=== PATIENT | male | born 1970 | race American Indian/Alaskan Native ===

== ENCOUNTER 2016-10-27 12:32 | Inpatient (IN) | payer SELFPAY ==
--- NOTE | 2016-10-27 13:06 | Emergency Department Report ---
Chief Complaint: Dyspnea/Respdistress Stated Complaint: ALVIN/SWELLING Time Seen by Provider: 10/27/16 13:02 - HPI History of Present Illness: Patient is a 46 y/o malw who presents due to SOB and orthopnea x 1 year. Patient states that he came to the ER because of the he noticed swellin in his feet and lower legs x 2 weeks. Patient denies any chest pain. Patient states that had has h/o HTN but has not taking any medications or seen a doctor. - ROS Review of Systems: positive orthopnea, SOB, and pedal edema - Exam Vital Signs: Vital Signs 10/27/16 12:43 Temperature 98.6 F Pulse Rate 108 H Respiratory 20 Rate Blood Pressure 187/131 O2 Sat by Pulse 94 Oximetry Physical Exam: 2 + pedal edema from feet to bilateral lower leg. MSE screening note: Focused history and physical exam performed. Due to findings the following was ordered: ED Disposition for MSE Condition: Stable
[2016-10-27 13:49] LABS: Basophils % (Auto) 2.4 % (0.0-1.8); Hematocrit 48.8 % (35.5-45.6); Hemoglobin 15.9 gm/dl (11.8-15.2); Mean Corpuscular HGB Conc 33 % (32-34); Mean Corpuscular Hemoglobin 30 pg (28-32); Mean Corpuscular Volume 92 fl (84-94); Platelet Count 215 K/mm3 (140-440); Red Blood Count 5.33 M/mm3 (3.65-5.03); Red Cell Distribution Width 12.9 % (13.2-15.2)
[2016-10-27 13:57] LABS: INR 1.06 (0.87-1.13)
[2016-10-27 13:58] LABS: Partial Thromboplastin Time 33.2 Sec. (24.2-36.6)
[2016-10-27 14:05] LABS: Albumin 3.1 g/dL (3.9-5); Albumin/Globulin Ratio 0.9 %; Bilirubin,Total 0.6 mg/dL (0.1-1.2); Calcium 8.5 mg/dL (8.4-10.2); Chloride 97.4 mmol/L (98-107); Potassium 3.8 mmol/L (3.6-5.0); Total Protein 6.6 g/dL (6.3-8.2)
[2016-10-27 14:19] LABS: Creatine Kinase 236 units/L (55-170); Creatine Kinase MB 5.4 ng/mL (0.0-4.0)
--- NOTE | 2016-10-27 14:34 | XRay Report ---
CHEST X-RAY, 2 VIEWS History: Dyspnea Findings: There is borderline heart size and mild pulmonary venous congestion. Trace right pleural effusion could be present. No consolidation or pneumothorax. The bony thorax is intact. Impression: Mild congestive changes.
[2016-10-27] MEDS ORDERED: LASIX IV ONE (17:34)
--- NOTE | 2016-10-27 17:42 | Emergency Department Report ---
HPI - General Chief Complaint: Dyspnea/Respdistress Time Seen by Provider: 10/27/16 17:26 - HPI HPI: Room 18 The patient is a 46-year-old male presenting with chief complaint of bilateral lower extremity edema. The patient states for the past 1.5 weeks he has noticed swelling of bilateral lower extremities. The patient states for 1.5 years is exhibiting orthopnea and occasionally chest tightness when lying supine. The patient admits to dyspnea on exertion for approximately one year. The patient states he has not sought medical attention for the above complaints until today. The patient currently denies chest pain Location: [see above] Duration: 1.5 years Quality: Pressure Severity: Moderate Modifying factors: [see above] Context: [see above] Mode of transportation: Unknown ED Past Medical Hx - Past Medical History Previous Medical History?: No Hx Hypertension: Yes (not on medication) Additional medical history: tracheotomy,jaw wired - Surgical History Past Surgical History?: No Additional Surgical History: trach,jaw wired,hernia - Family History Family history: no significant - Social History Smoking Status: Former Smoker (none 1 month) Substance Use Type: None (denies illicit drug use), Alcohol (occasional) ED Review of Systems ROS: Stated complaint: ALVIN/SWELLING Other details as noted in HPI Comment: All other systems reviewed and negative Constitutional: denies: chills, fever Eyes: denies: eye pain, eye discharge, vision change ENT: denies: ear pain, throat pain Respiratory: cough, orthopnea, shortness of breath Cardiovascular: chest pain, dyspnea on exertion, orthopnea. denies: palpitations Endocrine: no symptoms reported Gastrointestinal: denies: abdominal pain, nausea, diarrhea Genitourinary: denies: urgency, dysuria Musculoskeletal: denies: back pain, joint swelling, arthralgia Skin: denies: rash, lesions Neurological: denies: headache, weakness, paresthesias Psychiatric: denies: anxiety, depression Hematological/Lymphatic: other (bilateral lower extremity edema) Physical Exam - Physical Exam Vital Signs: Vital Signs 10/27/16 12:43 Temperature 98.6 F Pulse Rate 108 H Respiratory 20 Rate Blood Pressure 187/131 O2 Sat by Pulse 94 Oximetry Physical Exam: GENERAL: The patient is well-developed well-nourished male sitting on stretcher not appearing to be in acute distress. [] HEENT: Normocephalic. Atraumatic. Extraocular motions are intact. Patient has moist mucous membranes. NECK: Supple. Trachea midline CHEST/LUNGS: Occasional faint crackle at left base. There is no respiratory distress noted. HEART/CARDIOVASCULAR: Regular. There is no tachycardia. There is no gallop rub or murmur. ABDOMEN: Abdomen is soft, nontender. Patient has normal bowel sounds. There is no abdominal distention. SKIN: There is no rash. There is 2+ bilateral lower extremity pitting edema. There is no diaphoresis. NEURO: The patient is awake, alert, and oriented. The patient is cooperative. The patient has normal speech MUSCULOSKELETAL: There is no evidence of acute injury. ED Course Vital Signs 10/27/16 12:43 Temperature 98.6 F Pulse Rate 108 H Respiratory 20 Rate Blood Pressure 187/131 O2 Sat by Pulse 94 Oximetry ED Medical Decision Making - Lab Data Result diagrams: 10/27/16 13:29 10/27/16 13:29 Laboratory Tests 10/27/16 10/27/16 10/27/16 13:29 13:29 13:29 WBC 7.0 RBC 5.33 H Hgb 15.9 H Hct 48.8 H MCV 92 MCH 30 MCHC 33 RDW 12.9 L Plt Count 215 Lymph % (Auto) 15.6 Pike % (Auto) 6.7 Eos % (Auto) 3.0 Baso % (Auto) 2.4 H Lymph # 1.1 L Pike # 0.5 Eos # 0.2 Baso # 0.2 H Seg Neutrophils % 72.3 H Seg Neutrophils # 5.1 PT 13.7 INR 1.06 APTT 33.2 Sodium 137 Potassium 3.8 Chloride 97.4 L Carbon Dioxide 29 Anion Gap 14 BUN 14 Creatinine 1.4 Estimated GFR 54 BUN/Creatinine Ratio 10.00 Glucose 318 H Calcium 8.5 Total Bilirubin 0.6 AST 38 ALT 56 Alkaline Phosphatase 115 Total Creatine Kinase CK-MB (CK-2) CK-MB (CK-2) Rel Index Troponin T NT-Pro-B Natriuret Pep Total Protein 6.6 Albumin 3.1 L Albumin/Globulin Ratio 0.9 Lipase 25 10/27/16 10/27/16 13:29 13:29 WBC RBC Hgb Hct MCV MCH MCHC RDW Plt Count Lymph % (Auto) Pike % (Auto) Eos % (Auto) Baso % (Auto) Lymph # Pike # Eos # Baso # Seg Neutrophils % Seg Neutrophils # PT INR APTT Sodium Potassium Chloride Carbon Dioxide Anion Gap BUN Creatinine Estimated GFR BUN/Creatinine Ratio Glucose Calcium Total Bilirubin AST ALT Alkaline Phosphatase Total Creatine Kinase 236 H CK-MB (CK-2) 5.4 H CK-MB (CK-2) Rel Index 2.2 Troponin T < 0.010 NT-Pro-B Natriuret Pep 2668 H Total Protein Albumin Albumin/Globulin Ratio Lipase - EKG Data -: EKG Interpreted by Me EKG shows normal: sinus rhythm Rate: tachycardia (103 bpm) - EKG Data When compared to previous EKG there are: previous EKG unavailable Interpretation: nonspecific ST-T wave wilber (T-wave inversion in leads 1, aVL) - Radiology Data Radiology results: image reviewed (chest x-ray) interpreted by me: Chest x-ray-mild CHF changes - Differential Diagnosis CHF, ACS, acute renal failure Critical care attestation.: If time is entered above; I have spent that time in minutes in the direct care of this critically ill patient, excluding procedure time. ED Disposition Clinical Impression: Congestive heart failure, Orthopnea, Dyspnea on exertion, T wave inversion in EKG Disposition: OP ADMITTED IP TO THIS HOSP Is pt being admited?: Yes Does the pt Need Aspirin: Yes Condition: Fair Referrals: PRIMARY CARE, [Primary Care Provider] - 3-5 Days Time of Disposition: 17:54 (hospitalist notified)
[2016-10-27] MEDS ORDERED: ASPIRIN PO ONE (17:47)
--- NOTE | 2016-10-27 18:00 | Admit Criteria Form ---
Admission Criteria Documentation: HEART FAILURE: COMMON COMPLICATIONS Clinical Indications for Inpatient Care (Place 'X' for any and all applicable criteria): Ongoing inpatient care may be indicated for heart failure with ANY ONE of the following (1)(2)(3)(4)(5): [ ]I. Ongoing need for care for primary condition requiring frequent therapy adjustments because of changes in cardiac function (eg, drug dosage changes for drugs that are renally metabolized) [ ]II. New-onset heart failure [ ]III. Heart failure with decreased urine output not responsive to attempts to optimize volume status [ ]IV. Acute cardiac ischemia causing or associated with failure [X ]V. Complications of heart failure, including ANY ONE of the following: [ ]a) Pericardial effusion [ ]b) Symptomatic pleural effusion [ ]c) O2 saturation <90% or PO2 < 60 mm Hg (8.0 kPa) on room air or require baseline supplemental O2 [ ]d) Tachypnea [ X]e) Dyspnea [ ]f) Syncope [ ]g) Change in mental status [ ]h) Acute renal insufficiency that is severe (reduction of more than 50% in estimated glomerular filtration rate from baseline) or progressive reduction of more than 25% in estimated glomerular filtration rate from baseline, with creatinine continuing to rise) [ ]i) Hemodynamic instability [ ]j) Anasarca [ ]k) Clinically significant metabolic abnormalities due to heart failure (eg, new-onset metabolic acidosis) Extended stay beyond goal length of stay for primary condition may be needed until ALL of the following are present(1)(3): [ ]a) Stable and effective diuretic regimen established (or patient on stable dialysis regimen if in chronic renal failure) [ ]b) Breathing comfortably at rest [ ]c) Saturation of arterial oxygen greater than 90% or at acceptable baseline [ ]d) Pulmonary edema absent or improved [ ]e) Hemodynamic stability [ ]f) Volume status acceptable on oral medication [ ]g) Peripheral or sacral edema absent or improved [ ]h) Renal function stable and manageable at a lower level of care [ ]i) Complications (eg, pleural effusion) resolved or manageable at a lower level of care [ ]j) Patient or caregiver has received written discharge instructions or educational material addressing activity level, diet, discharge medications, follow-up appointment, weight monitoring, and what to do if symptoms worsen The original [facility] content created by [employer] has been revised. The portions of the content which have been revised are identified through the use of italic text or in bold, and [facility] has neither reviewed nor approved the modified material.All other unmodified content is copyright [facility]. Please see references footnoted in the original [facility] edition 2016 Admission Criteria Met: Yes
--- NOTE | 2016-10-27 18:30 | History and Physical Report ---
History of Present Illness Date of examination: 10/27/16 Date of admission: 10/27/16 Chief complaint: Shortness of breath and leg edema for 2 weeks History of present illness: Patient is a 46-year-old with no known past medical history. He does not have a primary care physician and has not seen a doctor in many many years. He presents with 2 week history of leg edema and shortness of breath. Shortness of breath is worse on exertion and on lying down flat. He denies any chest pain. Leg edema has been getting worse over the past 2 weeks. No nausea no vomiting no headache. In emergency department, he is found to have hypertensive urgency and congestive heart failure and will therefore be admitted. Past History Past Medical History: No medical history Past Surgical History: Other (tracheostomy, mandibular fracture status post wiring) Social history: (has 4 children), smoking (quit smoking one month ago), alcohol abuse (alcohol occasionally), full code Family history: diabetes (mother has diabetes) Medications and Allergies Allergies Allergy/AdvReac Type Severity Reaction Status Date / Time No Known Allergies Allergy Unverified 10/27/16 12:50 Home Medications Medication Instructions Recorded Confirmed Last Taken Type No Known Home Medications [No 10/27/16 10/27/16 Unknown History Reported Home Medications] Review of Systems All systems: negative (no headache, no fever, no abdominal pain, no vomiting, no dysuria, no leg weakness. All other systems reviewed and are negative) Exam - Physical Exam Narrative exam: Gen appearance: not in acute distress, obese HEENT: Normocephalic, atraumatic Neck : supple, no JVD Lungs: Patient has crackles bibasilar, no wheezing . Heart : S1 and S2 regular, no murmurs rubs or gallop, Abdomen: soft nontender, nondistended, normal bowel sounds Extremities: Bilateral lower extremity edema, no clubbing or cyanosis, Neuro :awake alert oriented 3, no focal signs Psych :appropriate mood - Constitutional Vitals: Temp Pulse Resp BP Pulse Ox 98.6 F 102 H 22 186/130 91 10/27/16 12:43 10/27/16 18:16 10/27/16 18:16 10/27/16 18:16 10/27/16 18:16 Results - Labs CBC & Chem 7: 10/27/16 13:29 10/27/16 13:29 Labs: Abnormal lab results 10/27/16 10/27/16 10/27/16 Range/Units 13:29 13:29 13:29 RBC 5.33 H (3.65-5.03) M/mm3 Hgb 15.9 H (11.8-15.2) gm/dl Hct 48.8 H (35.5-45.6) % RDW 12.9 L (13.2-15.2) % Baso % (Auto) 2.4 H (0.0-1.8) % Lymph # 1.1 L (1.2-5.4) K/mm3 Baso # 0.2 H (0.0-0.1) K/mm3 Seg Neutrophils % 72.3 H (40.0-70.0) % Chloride 97.4 L (98-107) mmol/L Glucose 318 H (75-100) mg/dL Total Creatine Kinase 236 H (55-170) units/L CK-MB (CK-2) 5.4 H (0.0-4.0) ng/mL NT-Pro-B Natriuret Pep (0-450) pg/mL Albumin 3.1 L (3.9-5) g/dL 10/27/16 Range/Units 13:29 RBC (3.65-5.03) M/mm3 Hgb (11.8-15.2) gm/dl Hct (35.5-45.6) % RDW (13.2-15.2) % Baso % (Auto) (0.0-1.8) % Lymph # (1.2-5.4) K/mm3 Baso # (0.0-0.1) K/mm3 Seg Neutrophils % (40.0-70.0) % Chloride (98-107) mmol/L Glucose (75-100) mg/dL Total Creatine Kinase (55-170) units/L CK-MB (CK-2) (0.0-4.0) ng/mL NT-Pro-B Natriuret Pep 2668 H (0-450) pg/mL Albumin (3.9-5) g/dL Assessment and Plan Acute congestive heart failure . Admit to telemetry. Use heart failure protocol. Give Lasix IV 40 mg twice a day, Coreg twice daily and Nitropaste. Obtain echocardiogram to check EF. Hypertensive urgency. Initial blood pressure 187/131. Give hydralazine IV when necessary. Start Coreg and Nitropaste. Diabetes mellitus type II. This is a new diagnosis. His glucose is elevated at 318 so he probably has diabetes. Check fingerstick glucose before every meal and at bedtime. Will check hemoglobin A1c. Patient will need diabetic teaching and antidiabetics on discharge Obesity. I counseled him on losing weight. DVT prophylaxis with heparin subcut. Full CODE STATUS
[2016-10-27 18:52] LABS: Bilirubin,Urine NEG (Negative); Blood,Urine SM (Negative); Ketones,Urine NEG (Negative); Leukocyte Esterase,Urine NEG (Negative); Mucus,Urine FEW /HPF; Nitrite,Urine NEG (Negative); Urobilinogen,Urine < 2.0 mg/dL (<2.0); WBC,Urine < 1.0 /HPF (0.0-6.0)
[2016-10-27] MEDS ORDERED: MILK OF MAGNESIA PO PRN (19:15)
[2016-10-27] MEDS ORDERED: TYLENOL PO PRN (19:15)
[2016-10-27] MEDS ORDERED: APRESOLINE IV STA (19:15)
[2016-10-27] MEDS ORDERED: NORCO 5/325 PO PRN (19:15)
[2016-10-27] MEDS ORDERED: ZOFRAN IV PRN (19:15)
[2016-10-27] MEDS ORDERED: DULCOLAX PR PRN (19:15)
[2016-10-27] MEDS ORDERED: NITROSTAT SL PRN (19:23)
[2016-10-27] MEDS ORDERED: APRESOLINE ONE (20:07)
[2016-10-27] MEDS ORDERED: NITRO-BID 2% TP SCH (21:00)
[2016-10-27] MEDS: NORVASC PO SCH (22:54)
[2016-10-27] MEDS: COREG PO SCH (22:55)
[2016-10-27] MEDS: HEPARIN SUB-Q SCH (22:59)
[2016-10-28] MEDS: APRESOLINE IV PRN ×2 (00:16→21:51)
[2016-10-28] MEDS: NITRO-BID 2% TP SCH ×4 (05:49→17:18)
[2016-10-28] MEDS: LASIX IV SCH ×2 (05:49→17:18)
[2016-10-28] MEDS: HEPARIN SUB-Q SCH ×3 (05:52→21:52)
[2016-10-28 07:23] LABS: Anion Gap 16 mmol/L; Blood Urea Nitrogen 12 mg/dL (9-20); Calcium 8.5 mg/dL (8.4-10.2); Carbon Dioxide 27 mmol/L (22-30); Chloride 100.5 mmol/L (98-107); Glucose 247 mg/dL (75-100); Potassium 3.4 mmol/L (3.6-5.0); Sodium 140 mmol/L (137-145)
[2016-10-28 07:27] LABS: Basophils % (Auto) 0.8 % (0.0-1.8); Eosinophils % (Auto) 2.1 % (0.0-4.3); Hematocrit 48.5 % (35.5-45.6); Hemoglobin 15.7 gm/dl (11.8-15.2); Mean Corpuscular HGB Conc 32 % (32-34); Mean Corpuscular Hemoglobin 29 pg (28-32); Mean Corpuscular Volume 91 fl (84-94); Platelet Count 240 K/mm3 (140-440); Red Blood Count 5.33 M/mm3 (3.65-5.03); Red Cell Distribution Width 12.9 % (13.2-15.2); White Blood Count 7.1 K/mm3 (4.5-11.0)
[2016-10-28] MEDS: K-DUR PO SCH ×2 (09:43→15:43)
[2016-10-28] MEDS: NORVASC PO SCH (09:43)
[2016-10-28] MEDS: COREG PO SCH ×2 (09:43→21:48)
[2016-10-28] MEDS ORDERED: NORVASC PO STA (11:25)
--- NOTE | 2016-10-28 11:29 | Progress Note ---
Assessment and Plan Assessment and plan: Acute congestive heart failure . Continue Lasix IV 40 mg twice a day, Coreg twice daily and Nitropaste. Obtain echocardiogram to check EF. Hypertensive urgency. The pressure still uncontrolled. continue Coreg and Nitropaste. Will increase Norvasc to 10 mg by mouth daily. May add Hydralazine later today if blood pressure still uncontrolled. Diabetes mellitus type II. This is a new diagnosis. His glucose on admission was elevated at 318 , A1C 9.5. Check fingerstick glucose before every meal and at bedtime. started on Insulin. Obesity. I counseled him on losing weight. DVT prophylaxis with heparin subcut. Full CODE STATUS History Interval history: patient is 46-year-old admitted with acute CHF, Less shortness of breath, less leg edema Hospitalist Physical - Physical exam Narrative exam: Gen appearance: not in acute distress, obese HEENT: Normocephalic, atraumatic Neck : supple, no JVD Lungs: Patient has crackles bibasilar, no wheezing . Heart : S1 and S2 regular, no murmurs rubs or gallop, Abdomen: soft nontender, nondistended, normal bowel sounds Extremities: Bilateral lower extremity edema, no clubbing or cyanosis, Neuro :awake alert oriented 3, no focal signs Psych :appropriate mood - Constitutional Vitals: Temp Pulse Resp BP Pulse Ox 98.2 F 108 H 20 171/104 97 10/28/16 07:54 10/28/16 07:54 10/28/16 07:54 10/28/16 09:49 10/28/16 01:50 Results - Labs CBC & Chem 7: 10/28/16 06:11 10/28/16 06:11 Labs: Laboratory Last Values WBC 7.1 K/mm3 (4.5-11.0) 10/28/16 06:11 RBC 5.33 M/mm3 (3.65-5.03) H 10/28/16 06:11 Hgb 15.7 gm/dl (11.8-15.2) H 10/28/16 06:11 Hct 48.5 % (35.5-45.6) H 10/28/16 06:11 MCV 91 fl (84-94) 10/28/16 06:11 MCH 29 pg (28-32) 10/28/16 06:11 MCHC 32 % (32-34) 10/28/16 06:11 RDW 12.9 % (13.2-15.2) L 10/28/16 06:11 Plt Count 240 K/mm3 (140-440) 10/28/16 06:11 Lymph % (Auto) 17.8 % (13.4-35.0) 10/28/16 06:11 [place] % (Auto) 8.1 % (0.0-7.3) H 10/28/16 06:11 Eos % (Auto) 2.1 % (0.0-4.3) 10/28/16 06:11 Baso % (Auto) 0.8 % (0.0-1.8) 10/28/16 06:11 Lymph # 1.3 K/mm3 (1.2-5.4) 10/28/16 06:11 [place] # 0.6 K/mm3 (0.0-0.8) 10/28/16 06:11 Eos # 0.1 K/mm3 (0.0-0.4) 10/28/16 06:11 Baso # 0.1 K/mm3 (0.0-0.1) 10/28/16 06:11 Seg Neutrophils % 71.2 % (40.0-70.0) H 10/28/16 06:11 Seg Neutrophils # 5.1 K/mm3 (1.8-7.7) 10/28/16 06:11 PT 13.7 Sec. (12.2-14.9) 10/27/16 13:29 INR 1.06 (0.87-1.13) 10/27/16 13:29 APTT 33.2 Sec. (24.2-36.6) 10/27/16 13:29 Sodium 140 mmol/L (137-145) 10/28/16 06:11 Potassium 3.4 mmol/L (3.6-5.0) L 10/28/16 06:11 Chloride 100.5 mmol/L (98-107) 10/28/16 06:11 Carbon Dioxide 27 mmol/L (22-30) 10/28/16 06:11 Anion Gap 16 mmol/L 10/28/16 06:11 BUN 12 mg/dL (9-20) 10/28/16 06:11 Creatinine 1.1 mg/dL (0.8-1.5) 10/28/16 06:11 Estimated GFR > 60 ml/min 10/28/16 06:11 BUN/Creatinine Ratio 10.90 % 10/28/16 06:11 Glucose 247 mg/dL (75-100) H 10/28/16 06:11 POC Glucose 231 (70-105) H 10/28/16 07:52 Hemoglobin A1c 9.5 % (4-6) H 10/27/16 13:29 Calcium 8.5 mg/dL (8.4-10.2) 10/28/16 06:11 Total Bilirubin 0.6 mg/dL (0.1-1.2) 10/27/16 13:29 AST 38 units/L (5-40) 10/27/16 13:29 ALT 56 units/L (7-56) 10/27/16 13:29 Alkaline Phosphatase 115 units/L (35-129) 10/27/16 13:29 Total Creatine Kinase 236 units/L (55-170) H 10/27/16 13:29 CK-MB (CK-2) 5.4 ng/mL (0.0-4.0) H 10/27/16 13:29 CK-MB (CK-2) Rel Index 2.2 (0-4) 10/27/16 13:29 Troponin T < 0.010 ng/mL (0.00-0.029) 10/27/16 19:13 NT-Pro-B Natriuret Pep 2668 pg/mL (0-450) H 10/27/16 13:29 Total Protein 6.6 g/dL (6.3-8.2) 10/27/16 13:29 Albumin 3.1 g/dL (3.9-5) L 10/27/16 13:29 Albumin/Globulin Ratio 0.9 % 10/27/16 13:29 Triglycerides 116 mg/dL (2-149) 10/27/16 13:29 Cholesterol 158 mg/dL (50-199) 10/27/16 13:29 LDL Cholesterol Direct 94 mg/dL (50-130) 10/27/16 13:29 HDL Cholesterol 41 mg/dL (40-59) 10/27/16 13:29 Cholesterol/HDL Ratio 3.85 % 10/27/16 13:29 Lipase 25 units/L (13-60) 10/27/16 13:29 Urine Color Straw (Yellow) 10/27/16 18:22 Urine Turbidity Clear (Clear) 10/27/16 18:22 Urine pH 7.0 (5.0-7.0) 10/27/16 18:22 Ur Specific [place] 1.005 (1.003-1.030) 10/27/16 18:22 Urine Protein 100 mg/dl mg/dL (Negative) 10/27/16 18:22 Urine Glucose (UA) >=500 mg/dL (Negative) 10/27/16 18:22 Urine Ketones Neg mg/dL (Negative) 10/27/16 18:22 Urine Blood Sm (Negative) 10/27/16 18:22 Urine Nitrite Neg (Negative) 10/27/16 18:22 Urine Bilirubin Neg (Negative) 10/27/16 18:22 Urine Urobilinogen < 2.0 mg/dL (<2.0) 10/27/16 18:22 Ur Leukocyte Esterase Neg (Negative) 10/27/16 18:22 Urine WBC (Auto) < 1.0 /HPF (0.0-6.0) 10/27/16 18:22 Urine RBC (Auto) 1.0 /HPF (0.0-6.0) 10/27/16 18:22 Urine Mucus Few /HPF 10/27/16 18:22
--- NOTE | 2016-10-28 16:06 | Echocardiography Report ---
Transthoracic Echocardiogram BP: 174/96 HR: 73 Conclusions *there is moderate concentric lv thickening *The estimated ejection fraction is 35-40% *there is grade l lv diastolic dysfunction *The left atrium is normal *The right atrium is normal *The right ventricular cavity size is normal. *The right ventricular global systolic function is mildly reduced. *There is no evidence of aortic regurgitation. *There is no evidence of aortic stenosis. *There is trace of mitral regurgitation. *There is no evidence of mitral stenosis. *There is trace tricuspid regurgitation. *There is no pericardial effusion. *the aortic root appears normal *the ivc appears dialted but is phasic with respiration. mean ra pressure is estimated to be 8 mm hg. Findings Procedure Info: The study quality is fair. Right Ventricle: The right ventricular cavity size is normal. The right ventricular global systolic function is mildly reduced. Aortic Valve: The aortic valve is trileaflet. There is no evidence of aortic regurgitation. There is no evidence of aortic stenosis. Mitral Valve: The mitral valve leaflets appear normal. There is trace of mitral regurgitation. There is no evidence of mitral stenosis. Tricuspid Valve: The tricuspid valve leaflets are normal. There is trace tricuspid regurgitation. There is no tricuspid stenosis. Pulmonic Valve: The pulmonic valve is not well visualized. There is no evidence of pulmonic regurgitation. There is no pulmonic stenosis. Pericardium: There is no pericardial effusion. Measurements Chambers MM Name Value Normal Range IVSd (MM) 1.45 cm (0.6 - 1.1) LVPWd (MM) 1.49 cm (0.6 - 1.1) IVS:LVPW ratio 0.97 ratio - LVIDd (MM) 5.16 cm (3.7 - 5.6) LVIDs (MM) 3.99 cm (2 - 2.8) LV FS (Teichholz) (MM) 22.7 % - LV FS (cube) (MM) 22.7 % - EF Teichholz (MM) 45.2 % - Chambers 2D Name Value Normal Range IVSd (2D) 1.6 cm (0.6 - 1.1) LVPWd 1.3 cm - LVPWd (2D) 1.33 cm (0.6 - 1.1) IVS:LVPW ratio (2D) 1.2 ratio - LVIDd 4.4 cm - LVIDs 3.6 cm - LVIDd (2D) 4.38 cm (3.7 - 5.6) LVIDs (2D) 3.59 cm (2 - 3.8) LV FS (Teichholz) (2D) 18 % - LV FS (cube) (2D) 18 % - LV EF (2D) 38 % - EF Teichholz (2D) 37.7 % - LA dimension 4.3 cm - Ao root diameter (2D) 3.1 cm (2 - 3.7) LA dimension (AP) 2D 4.3 cm (1.9 - 4) LA:Ao ratio (2D) 1.39 ratio - Volumes/Mass Name Value Normal Range LA ESV SP 4CH (MOD) 43 ml - LV EDV SP 4CH (MOD) 81 ml - LV ESV SP 4CH (MOD) 49 ml - EF SP 4CH (MOD) 40 % - Diastolic/Systolic Function Name Value Normal Range MV E-wave Vmax 0.87 m/sec - MV deceleration time 180 msec - LV septal e' Vmax 0.07 m/sec - LV lateral e' Vmax 0.04 m/sec - LV E:e' septal ratio 12.4 ratio - LV E:e' lateral ratio 19.4 ratio - Aortic Valve Name Value Normal Range AV Vmax 1.38 m/sec - AV peak gradient 8 mmHg - LVOT diameter 2 cm - LVOT Vmax 0.85 m/sec - LVOT peak gradient 3 mmHg - GODWIN (continuity Vmax) 1.93 cm2 - Tricuspid Valve Name Value Normal Range TR Vmax 2.48 m/sec - TR peak gradient 25 mmHg - Pulmonic Valve/Qp:Qs Name Value Normal Range PV Vmax 0.72 m/sec - PV peak gradient 2 mmHg - PV acceleration time 69 msec -
[2016-10-28] MEDS: NOVOLOG SUB-Q SCH (22:37)
[2016-10-29] MEDS: NOVOLOG SUB-Q SCH ×4 (13:54→21:47)
[2016-10-29] MEDS: NITRO-BID 2% TP SCH ×4 (13:55→21:15)
[2016-10-29] MEDS: HEPARIN SUB-Q SCH ×3 (14:00→21:47)
--- NOTE | 2016-10-29 14:37 | Progress Note ---
Assessment and Plan Assessment and plan: Acute congestive heart failure . Continue Lasix IV 40 mg twice a day, Coreg twice daily and Nitropaste. Shows EF 35-40%. Consult Cardiology. For stress test in the morning. Hypertensive urgency. The pressure still uncontrolled. increase Coreg to 12.5 mg po bid. Will increase Norvasc to 10 mg by mouth daily. May add Hydralazine later today if blood pressure still uncontrolled. Diabetes mellitus type II. This is a new diagnosis. His glucose on admission was elevated at 318 , A1C 9.5. Check fingerstick glucose before every meal and at bedtime. started on Insulin. he states he does not want to go home on Insulin. Will send home on oral anti-diabetic. Obesity. I counseled him on losing weight. DVT prophylaxis with heparin subcut. Full CODE STATUS History Interval history: patient is 46-year-old admitted with acute CHF, Less shortness of breath, less leg edema Hospitalist Physical - Physical exam Narrative exam: Gen appearance: not in acute distress, obese HEENT: Normocephalic, atraumatic Neck : supple, no JVD Lungs: Patient has crackles bibasilar, no wheezing . Heart : S1 and S2 regular, no murmurs rubs or gallop, Abdomen: soft nontender, nondistended, normal bowel sounds Extremities: Bilateral lower extremity edema, no clubbing or cyanosis, Neuro :awake alert oriented 3, no focal signs Psych :appropriate mood - Constitutional Vitals: Temp Pulse Resp BP Pulse Ox 98.2 F 96 H 20 168/94 93 10/28/16 23:57 10/28/16 23:57 10/28/16 23:57 10/28/16 23:57 10/29/16 11:43 Results - Labs CBC & Chem 7: 10/28/16 06:11 10/29/16 06:00 Labs: Laboratory Last Values WBC 7.1 K/mm3 (4.5-11.0) 10/28/16 06:11 RBC 5.33 M/mm3 (3.65-5.03) H 10/28/16 06:11 Hgb 15.7 gm/dl (11.8-15.2) H 10/28/16 06:11 Hct 48.5 % (35.5-45.6) H 10/28/16 06:11 MCV 91 fl (84-94) 10/28/16 06:11 MCH 29 pg (28-32) 10/28/16 06:11 MCHC 32 % (32-34) 10/28/16 06:11 RDW 12.9 % (13.2-15.2) L 10/28/16 06:11 Plt Count 240 K/mm3 (140-440) 10/28/16 06:11 Lymph % (Auto) 17.8 % (13.4-35.0) 10/28/16 06:11 [place] % (Auto) 8.1 % (0.0-7.3) H 10/28/16 06:11 Eos % (Auto) 2.1 % (0.0-4.3) 10/28/16 06:11 Baso % (Auto) 0.8 % (0.0-1.8) 10/28/16 06:11 Lymph # 1.3 K/mm3 (1.2-5.4) 10/28/16 06:11 [place] # 0.6 K/mm3 (0.0-0.8) 10/28/16 06:11 Eos # 0.1 K/mm3 (0.0-0.4) 10/28/16 06:11 Baso # 0.1 K/mm3 (0.0-0.1) 10/28/16 06:11 Seg Neutrophils % 71.2 % (40.0-70.0) H 10/28/16 06:11 Seg Neutrophils # 5.1 K/mm3 (1.8-7.7) 10/28/16 06:11 PT 13.7 Sec. (12.2-14.9) 10/27/16 13:29 INR 1.06 (0.87-1.13) 10/27/16 13:29 APTT 33.2 Sec. (24.2-36.6) 10/27/16 13:29 Sodium 140 mmol/L (137-145) 10/28/16 06:11 Potassium 3.4 mmol/L (3.6-5.0) L 10/28/16 06:11 Chloride 100.5 mmol/L (98-107) 10/28/16 06:11 Carbon Dioxide 27 mmol/L (22-30) 10/28/16 06:11 Anion Gap 16 mmol/L 10/28/16 06:11 BUN 12 mg/dL (9-20) 10/28/16 06:11 Creatinine 1.1 mg/dL (0.8-1.5) 10/28/16 06:11 Estimated GFR > 60 ml/min 10/28/16 06:11 BUN/Creatinine Ratio 10.90 % 10/28/16 06:11 Glucose 247 mg/dL (75-100) H 10/28/16 06:11 POC Glucose 137 (70-105) H 10/29/16 12:52 Hemoglobin A1c 9.5 % (4-6) H 10/27/16 13:29 Calcium 8.5 mg/dL (8.4-10.2) 10/28/16 06:11 Total Bilirubin 0.6 mg/dL (0.1-1.2) 10/27/16 13:29 AST 38 units/L (5-40) 10/27/16 13:29 ALT 56 units/L (7-56) 10/27/16 13:29 Alkaline Phosphatase 115 units/L (35-129) 10/27/16 13:29 Total Creatine Kinase 236 units/L (55-170) H 10/27/16 13:29 CK-MB (CK-2) 5.4 ng/mL (0.0-4.0) H 10/27/16 13:29 CK-MB (CK-2) Rel Index 2.2 (0-4) 10/27/16 13:29 Troponin T < 0.010 ng/mL (0.00-0.029) 10/27/16 19:13 NT-Pro-B Natriuret Pep 2668 pg/mL (0-450) H 10/27/16 13:29 Total Protein 6.6 g/dL (6.3-8.2) 10/27/16 13:29 Albumin 3.1 g/dL (3.9-5) L 10/27/16 13:29 Albumin/Globulin Ratio 0.9 % 10/27/16 13:29 Triglycerides 116 mg/dL (2-149) 10/27/16 13:29 Cholesterol 158 mg/dL (50-199) 10/27/16 13:29 LDL Cholesterol Direct 94 mg/dL (50-130) 10/27/16 13:29 HDL Cholesterol 41 mg/dL (40-59) 10/27/16 13:29 Cholesterol/HDL Ratio 3.85 % 10/27/16 13:29 Lipase 25 units/L (13-60) 10/27/16 13:29 Urine Color Straw (Yellow) 10/27/16 18:22 Urine Turbidity Clear (Clear) 10/27/16 18:22 Urine pH 7.0 (5.0-7.0) 10/27/16 18:22 Ur Specific [place] 1.005 (1.003-1.030) 10/27/16 18:22 Urine Protein 100 mg/dl mg/dL (Negative) 10/27/16 18:22 Urine Glucose (UA) >=500 mg/dL (Negative) 10/27/16 18:22 Urine Ketones Neg mg/dL (Negative) 10/27/16 18:22 Urine Blood Sm (Negative) 10/27/16 18:22 Urine Nitrite Neg (Negative) 10/27/16 18:22 Urine Bilirubin Neg (Negative) 10/27/16 18:22 Urine Urobilinogen < 2.0 mg/dL (<2.0) 10/27/16 18:22 Ur Leukocyte Esterase Neg (Negative) 10/27/16 18:22 Urine WBC (Auto) < 1.0 /HPF (0.0-6.0) 10/27/16 18:22 Urine RBC (Auto) 1.0 /HPF (0.0-6.0) 10/27/16 18:22 Urine Mucus Few /HPF 10/27/16 18:22
[2016-10-29 14:51] LABS: Blood Urea Nitrogen 12 mg/dL (9-20); Calcium 8.7 mg/dL (8.4-10.2); Carbon Dioxide 29 mmol/L (22-30); Glucose 203 mg/dL (75-100); Potassium 3.6 mmol/L (3.6-5.0); Sodium 141 mmol/L (137-145)
[2016-10-29 15:31] LABS: Anion Gap 15 mmol/L
--- NOTE | 2016-10-29 15:52 | Consultation ---
History of Present Illness Consult date: 10/29/16 Requesting physician: YFN COLEMAN Consult reason: congestive heart failure History of present illness: The patient is a 46 year old male with no previous medical history who presented with complaints of worsening shortness of breath, orthopnea and leg edema over the past several weeks. He denies any chest pain, palpitations, nausea, vomiting or diaphoresis. Troponin negative. BNP 2668. CXR shows vascular congestion. Hemoglobin A1C 9.5. Echo done shows EF 35-40%, grade 1 diastolic dysfunction. No previous history of heart failure. Past History Past Medical History: No medical history Past Surgical History: Other (tracheostomy, mandibular fracture status post wiring) Social history: (has 4 children), smoking (quit smoking one month ago), alcohol abuse (alcohol occasionally), full code Family history: diabetes (mother has diabetes) Medications and Allergies Allergies Allergy/AdvReac Type Severity Reaction Status Date / Time No Known Allergies Allergy Unverified 10/27/16 12:50 Home Medications Medication Instructions Recorded Confirmed Last Taken Type No Known Home Medications [No 10/27/16 10/27/16 Unknown History Reported Home Medications] Active Meds: Active Medications Acetaminophen (Tylenol) 650 mg PO Q4H PRN PRN Reason: Pain MILD(1-3)/Fever >100.5/[place] Last Admin: 10/28/16 08:05 Dose: 650 mg Acetaminophen/Hydrocodone Bitart ([place] 5/325) 1 each PO Q6H PRN PRN Reason: Pain, Moderate (4-6) Amlodipine Besylate (Norvasc) 5 mg PO QDAY [facility] Last Admin: 10/28/16 09:43 Dose: 5 mg Bisacodyl (Dulcolax) 10 mg RI QDAY PRN PRN Reason: Constipation unrelieved by MOM Carvedilol (Coreg) 6.25 mg PO BID [facility] Last Admin: 10/28/16 21:48 Dose: 6.25 mg Furosemide (Lasix) 40 mg IV BID@0600,1800 [facility] Last Admin: 10/28/16 17:18 Dose: 40 mg Heparin Sodium (Porcine) (Heparin) 5,000 unit SUB-Q Q8HR [facility] Last Admin: 10/29/16 14:00 Dose: 5,000 unit Hydralazine HCl (Apresoline) 10 mg IV Q4HR PRN PRN Reason: For SBP>170 or DBP>110 Last Admin: 10/28/16 21:51 Dose: 10 mg Insulin Aspart (Novolog) 0 units SUB-Q ACHS [facility] PRN Reason: Protocol Last Admin: 10/29/16 13:54 Dose: Not Given Insulin Human Isoph/Insulin Regular (Novolin 70/30) 16 unit SUB-Q BIDDIAB [facility] Magnesium Hydroxide (Milk Of Magnesia) 30 ml PO Q4H PRN PRN Reason: Constipation Nitroglycerin (Nitrostat) 0.4 mg SL .Q5MIN PRN PRN Reason: Chest Pain Nitroglycerin (Nitro-Bid 2%) 1 inch TP QIDNTG [facility] PRN Reason: Protocol Last Admin: 10/29/16 13:55 Dose: 1 inch Ondansetron HCl (Zofran) 4 mg IV Q6H PRN PRN Reason: nausea or vomiting Review of Systems Constitutional: no fever, no chills Ears, nose, mouth and throat: no nasal congestion, no nasal discharge, no sinus pressure Cardiovascular: orthopnea, shortness of breath, dyspnea on exertion, leg edema, no chest pain Respiratory: shortness of breath, dyspnea on exertion Gastrointestinal: no abdominal pain, no nausea, no vomiting, no diarrhea Genitourinary Male: no dysuria, no hematuria Musculoskeletal: no neck stiffness, no neck pain, no myalgias Integumentary: no rash, no pruritis Neurological: no parathesias, no numbness, no tingling, no headaches Endocrine: no cold intolerance, no heat intolerance Hematologic/Lymphatic: no easy bruising, no easy bleeding Allergic/Immunologic: no urticaria, no wheezing Physical Examination Vital Signs Temp Pulse Resp BP Pulse Ox 98.6 F 108 H 20 187/131 94 10/27/16 12:43 10/27/16 12:43 10/27/16 12:43 10/27/16 12:43 10/27/16 12:43 General appearance: no acute distress HEENT: Positive: Normocephaly, Mucus Membranes Moist Neck: Positive: neck supple, trachea midline Cardiac: Positive: Reg Rate and Rhythm, S1/S2, Systolic Murmur Lungs: Positive: Rales Neuro: Positive: Grossly Intact Abdomen: Positive: Soft, Active Bowel Sounds. Negative: Tender Skin: Negative: Rash Extremities: Present: +2 Edema Results 10/28/16 06:11 10/29/16 06:00 Comprehensive Metabolic Panel 10/29/16 Range/Units 06:00 Sodium 141 (137-145) mmol/L Potassium 3.6 (3.6-5.0) mmol/L Chloride 101.0 (98-107) mmol/L Carbon Dioxide 29 (22-30) mmol/L BUN 12 (9-20) mg/dL Creatinine 1.2 (0.8-1.5) mg/dL Glucose 203 H (75-100) mg/dL Calcium 8.7 (8.4-10.2) mg/dL - Imaging and Cardiology Echo: report reviewed (09/2016: EF 35-40%, grade 1 diastolic dysfunction ) EKG: image reviewed EKG interpretations - Telemetry EKG Rhythm: Sinus Rhythm - EKG Sinus rhythms and dysrhythmias: sinus tachycardia QRS axis and voltage: left axis deviation Chamber hypertrophy or enlargement: left atrial enlargement Repolarization changes or abnormalities: nonspecific abnormality, ST segment, and/or T wave Assessment and Plan Acute systolic heart failure Echo 09/2016: EF 35-40%, grade 1 diastolic dysfunction continue IV lasix 40mg BID continue coreg add lisinopril stress thallium in am given new diagnosis of cardiomyopathy Accelerated hypertension BP improved continue coreg, lisinopril, norvasc Newly diagnosed diabetes Obesity Continue diuresis. Add lisinopril. Stress thallium in am given new diagnosis of cardiomyopathy. The patient has been seen in conjunction with Dr. Giraldo who agrees with the assessment and plan of care. Thank you Dr. Coleman for allowing us to participate in the care of this patient.
[2016-10-29] MEDS: COREG PO SCH ×2 (16:15→21:45)
[2016-10-29] MEDS: LASIX IV SCH ×2 (17:01→21:15)
[2016-10-29] MEDS: NORVASC PO SCH (18:47)
[2016-10-29] MEDS ORDERED: NORVASC PO ONE (20:00)
[2016-10-29] MEDS: NORCO 5/325 PO PRN (21:46)
[2016-10-29] MEDS ORDERED: COREG PO SCH (22:00)
[2016-10-30] MEDS: NORCO 5/325 PO PRN ×2 (02:21→09:56)
[2016-10-30] MEDS: APRESOLINE IV PRN (04:59)
[2016-10-30] MEDS: LASIX IV SCH (05:03)
[2016-10-30] MEDS: HEPARIN SUB-Q SCH ×2 (05:03→13:27)
[2016-10-30] MEDS: NITRO-BID 2% TP SCH ×3 (05:09→13:26)
[2016-10-30] MEDS ORDERED: LEXISCAN IV ONE (08:39)
[2016-10-30] MEDS: COREG PO SCH (09:56)
[2016-10-30] MEDS: NOVOLOG SUB-Q SCH ×2 (09:57→12:29)
[2016-10-30] MEDS ORDERED: ZESTRIL PO SCH ×3 (10:00→12:30)
[2016-10-30] MEDS ORDERED: NORVASC PO SCH ×2 (10:00)
--- NOTE | 2016-10-30 10:23 | Treadmill Report ---
NUCLEAR CARDIAC IMAGING INDICATION FOR PROCEDURE: Congestive heart failure, evaluate for ischemic cardiomyopathy. DESCRIPTION OF PROCEDURE: Resting nuclear cardiac images were performed 45-60 minutes following the intravenous administration of 10 mCi of technetium 99m Myoview. Vasodilator stress was achieved with 0.4 mg of Lexiscan per protocol. Stress myocardial perfusion imaging was performed 30-45 minutes following the intravenous administration of 28 mCi of technetium 99m Myoview. Images were acquired in a 180-degree arc from 45 degrees POWELL to 45 degrees LPO. After data acquisition and reconstruction, the images were processed and reoriented into the vertical long, horizontal long, and horizontal short axis slices. A polar color map of the horizontal short axis slices was generated and reviewed. The rotating planar images reviewed in cinematic format on the computer console. Gated SPECT imaging demonstrates a left ventricular ejection fraction of 36%. The left ventricle is diffusely hypokinetic. There is no significant cavity change between stress and rest. There is a small mild reversible inferoapical perfusion defect. Abnormal nuclear cardiac imaging study demonstrating moderately severe left ventricular systolic dysfunction with an area of mild ischemia involving the inferoapical wall. Although occlusive coronary artery disease cannot be definitely excluded, it would appear that the degree of left ventricular systolic dysfunction is out of proportion to the degree of ischemia. If clinically warranted, further evaluation with coronary angiography either invasive or noninvasive such as cardiac CTA may be appropriate. [facility]# [id number] LEEANNA/REA KLEIN
--- NOTE | 2016-10-30 10:36 | Progress Note ---
Assessment and Plan Acute systolic heart failure clinically improving Echo 09/2016: EF 35-40%, grade 1 diastolic dysfunction continue IV lasix 40mg BID continue coreg, will increase to 25mg BID continue lisinopril stress MPI today: small, mild reversible inferoapical defect Accelerated hypertension BP improved continue coreg, lisinopril, norvasc Newly diagnosed diabetes Obesity Stress test this morning revealed a small, mild reversible inferoapical defect. He was given the options of CCTA vs. cardiac cath for definitive diagnosis but wishes to continue with medical management at this time. Continue diuresis and aggressive blood pressure control. The patient has been seen in conjunction with Dr. Giraldo who agrees with the assessment and plan of care. Subjective Date of service: 10/30/16 Principal diagnosis: acute systolic heart failure Interval history: The patient is resting in bed. He is less short of breath. No chest pain. Objective Last Vital Signs Temp 97.7 F 10/30/16 07:30 Pulse 101 H 10/30/16 07:30 Resp 20 10/30/16 07:30 BP 161/99 10/30/16 07:30 Pulse Ox 98 10/30/16 07:30 - Physical Examination General: No Apparent Distress HEENT: Positive: Normocephaly, Mucus Membranes Moist Neck: Positive: neck supple, trachea midline Cardiac: Positive: Reg Rate and Rhythm, S1/S2 Lungs: Positive: clear to auscultation Neuro: Positive: Grossly Intact Abdomen: Positive: Soft, Active Bowel Sounds. Negative: Tender Skin: Negative: Rash Extremities: Present: +1 Edema - Labs and Meds Comprehensive Metabolic Panel 10/29/16 Range/Units 06:00 Sodium 141 (137-145) mmol/L Potassium 3.6 (3.6-5.0) mmol/L Chloride 101.0 (98-107) mmol/L Carbon Dioxide 29 (22-30) mmol/L BUN 12 (9-20) mg/dL Creatinine 1.2 (0.8-1.5) mg/dL Glucose 203 H (75-100) mg/dL Calcium 8.7 (8.4-10.2) mg/dL - Imaging and Cardiology EKG: image reviewed Echo: report reviewed (09/2016: EF 35-40%, grade 1 diastolic dysfunction ) - Telemetry EKG Rhythm: Sinus Rhythm - EKG Sinus rhythms and dysrhythmias: sinus tachycardia QRS axis and voltage: left axis deviation Chamber hypertrophy or enlargement: left atrial enlargement Repolarization changes or abnormalities: nonspecific abnormality, ST segment, and/or T wave
--- NOTE | 2016-10-30 11:08 | Progress Note ---
Hospitalist Physical - Constitutional Vitals: Temp Pulse Resp BP Pulse Ox 97.7 F 101 H 20 161/99 98 10/30/16 07:30 10/30/16 07:30 10/30/16 07:30 10/30/16 07:30 10/30/16 07:30 General appearance: Present: no acute distress Results - Labs CBC & Chem 7: 10/28/16 06:11 10/29/16 06:00 Labs: Laboratory Last Values WBC 7.1 K/mm3 (4.5-11.0) 10/28/16 06:11 RBC 5.33 M/mm3 (3.65-5.03) H 10/28/16 06:11 Hgb 15.7 gm/dl (11.8-15.2) H 10/28/16 06:11 Hct 48.5 % (35.5-45.6) H 10/28/16 06:11 MCV 91 fl (84-94) 10/28/16 06:11 MCH 29 pg (28-32) 10/28/16 06:11 MCHC 32 % (32-34) 10/28/16 06:11 RDW 12.9 % (13.2-15.2) L 10/28/16 06:11 Plt Count 240 K/mm3 (140-440) 10/28/16 06:11 Lymph % (Auto) 17.8 % (13.4-35.0) 10/28/16 06:11 [place] % (Auto) 8.1 % (0.0-7.3) H 10/28/16 06:11 Eos % (Auto) 2.1 % (0.0-4.3) 10/28/16 06:11 Baso % (Auto) 0.8 % (0.0-1.8) 10/28/16 06:11 Lymph # 1.3 K/mm3 (1.2-5.4) 10/28/16 06:11 [place] # 0.6 K/mm3 (0.0-0.8) 10/28/16 06:11 Eos # 0.1 K/mm3 (0.0-0.4) 10/28/16 06:11 Baso # 0.1 K/mm3 (0.0-0.1) 10/28/16 06:11 Seg Neutrophils % 71.2 % (40.0-70.0) H 10/28/16 06:11 Seg Neutrophils # 5.1 K/mm3 (1.8-7.7) 10/28/16 06:11 PT 13.7 Sec. (12.2-14.9) 10/27/16 13:29 INR 1.06 (0.87-1.13) 10/27/16 13:29 APTT 33.2 Sec. (24.2-36.6) 10/27/16 13:29 Sodium 141 mmol/L (137-145) 10/29/16 06:00 Potassium 3.6 mmol/L (3.6-5.0) 10/29/16 06:00 Chloride 101.0 mmol/L (98-107) 10/29/16 06:00 Carbon Dioxide 29 mmol/L (22-30) 10/29/16 06:00 Anion Gap 15 mmol/L 10/29/16 06:00 BUN 12 mg/dL (9-20) 10/29/16 06:00 Creatinine 1.2 mg/dL (0.8-1.5) 10/29/16 06:00 Estimated GFR > 60 ml/min 10/29/16 06:00 BUN/Creatinine Ratio 10.00 % 10/29/16 06:00 Glucose 203 mg/dL (75-100) H 10/29/16 06:00 POC Glucose 181 (70-105) H 10/30/16 07:46 Hemoglobin A1c 9.5 % (4-6) H 10/27/16 13:29 Calcium 8.7 mg/dL (8.4-10.2) 10/29/16 06:00 Total Bilirubin 0.6 mg/dL (0.1-1.2) 10/27/16 13:29 AST 38 units/L (5-40) 10/27/16 13:29 ALT 56 units/L (7-56) 10/27/16 13:29 Alkaline Phosphatase 115 units/L (35-129) 10/27/16 13:29 Total Creatine Kinase 236 units/L (55-170) H 10/27/16 13:29 CK-MB (CK-2) 5.4 ng/mL (0.0-4.0) H 10/27/16 13:29 CK-MB (CK-2) Rel Index 2.2 (0-4) 10/27/16 13:29 Troponin T < 0.010 ng/mL (0.00-0.029) 10/27/16 19:13 NT-Pro-B Natriuret Pep 2668 pg/mL (0-450) H 10/27/16 13:29 Total Protein 6.6 g/dL (6.3-8.2) 10/27/16 13:29 Albumin 3.1 g/dL (3.9-5) L 10/27/16 13:29 Albumin/Globulin Ratio 0.9 % 10/27/16 13:29 Triglycerides 116 mg/dL (2-149) 10/27/16 13:29 Cholesterol 158 mg/dL (50-199) 10/27/16 13:29 LDL Cholesterol Direct 94 mg/dL (50-130) 10/27/16 13:29 HDL Cholesterol 41 mg/dL (40-59) 10/27/16 13:29 Cholesterol/HDL Ratio 3.85 % 10/27/16 13:29 Lipase 25 units/L (13-60) 10/27/16 13:29 Urine Color Straw (Yellow) 10/27/16 18:22 Urine Turbidity Clear (Clear) 10/27/16 18:22 Urine pH 7.0 (5.0-7.0) 10/27/16 18:22 Ur Specific [place] 1.005 (1.003-1.030) 10/27/16 18:22 Urine Protein 100 mg/dl mg/dL (Negative) 10/27/16 18:22 Urine Glucose (UA) >=500 mg/dL (Negative) 10/27/16 18:22 Urine Ketones Neg mg/dL (Negative) 10/27/16 18:22 Urine Blood Sm (Negative) 10/27/16 18:22 Urine Nitrite Neg (Negative) 10/27/16 18:22 Urine Bilirubin Neg (Negative) 10/27/16 18:22 Urine Urobilinogen < 2.0 mg/dL (<2.0) 10/27/16 18:22 Ur Leukocyte Esterase Neg (Negative) 10/27/16 18:22 Urine WBC (Auto) < 1.0 /HPF (0.0-6.0) 10/27/16 18:22 Urine RBC (Auto) 1.0 /HPF (0.0-6.0) 10/27/16 18:22 Urine Mucus Few /HPF 10/27/16 18:22
[2016-10-30] MEDS ORDERED: COREG PO SCH ×3 (11:13→22:00)
[2016-10-30 15:27] VITALS: BP 166/96
--- NOTE | 2016-10-30 15:39 | Progress Note ---
Assessment and Plan continue present mgt for stress mpi today for eval of isch vs non isch cmp bp control. Subjective Date of service: 10/30/16 Principal diagnosis: acute systolic heart failure Interval history: less sob. no cp Objective Vital Signs Temp Pulse Pulse Pulse Resp Resp BP 10/30/16 14:07 98.6 F 94 H 16 10/30/16 10:00 99 H 10/30/16 08:57 107 H 166/96 10/30/16 08:56 108 H 162/97 10/30/16 08:55 108 H 178/95 10/30/16 08:54 108 H 163/95 10/30/16 08:53 111 H 139/83 10/30/16 08:52 108 H 167/105 10/30/16 08:44 101 H 178/106 10/30/16 07:30 97.7 F 101 H 20 10/30/16 04:57 98.1 F 96 H 18 10/30/16 03:21 20 10/30/16 00:00 98.1 F 94 H 18 10/29/16 22:46 20 10/29/16 21:51 18 10/29/16 21:15 18 10/29/16 20:45 98.4 F 99 H 18 10/29/16 20:06 10/29/16 20:04 98 H 20 10/29/16 19:10 102 H 10/29/16 16:50 98.5 F 90 20 BP Pulse Ox 10/30/16 14:07 122/67 10/30/16 10:00 10/30/16 08:57 10/30/16 08:56 10/30/16 08:55 10/30/16 08:54 10/30/16 08:53 10/30/16 08:52 10/30/16 08:44 10/30/16 07:30 161/99 98 10/30/16 04:57 180/124 97 10/30/16 03:21 10/30/16 00:00 148/88 99 10/29/16 22:46 10/29/16 21:51 10/29/16 21:15 10/29/16 20:45 160/99 98 10/29/16 20:06 93 10/29/16 20:04 97 10/29/16 19:10 10/29/16 16:50 160/98 92 - Physical Examination General: No Apparent Distress HEENT: Positive: Normocephaly, Mucus Membranes Moist Neck: Positive: neck supple, trachea midline Cardiac: Positive: Reg Rate and Rhythm, S4 Lungs: Positive: clear to auscultation Neuro: Positive: Grossly Intact Abdomen: Positive: Soft, Active Bowel Sounds. Negative: Tender Skin: Negative: Rash Extremities: Present: +1 Edema - Imaging and Cardiology EKG: image reviewed Echo: report reviewed (09/2016: EF 35-40%, grade 1 diastolic dysfunction ) - EKG Sinus rhythms and dysrhythmias: sinus tachycardia QRS axis and voltage: left axis deviation Chamber hypertrophy or enlargement: left atrial enlargement Repolarization changes or abnormalities: nonspecific abnormality, ST segment, and/or T wave
--- NOTE | 2016-10-30 15:48 | Discharge Summary ---
Providers - Providers Date of Admission: 10/27/16 19:15 Date of discharge: 10/30/16 Attending physician: YFN COLEMAN 10/29/16 14:35 Consult to Physician [CONS] Routine Consulting Provider: CHELSEA STEELE Reason For Exam: CHF, cardiomyopathy Place consult to:: Dr. Steele Notified:: lj Was contact made?: Yes Time called:: 14:40 Primary care physician: TA[employer] SUPERVISOR Hospitalization Condition: Fair Hospital course: Patient is 46 yo presented with shortness of breath and leg edema. Chest X ray revealed pulmonary edema. He was diagnosed with acute CHF. Also he had hypertensive emergency with initial BP 187/125. He was given Hydralazine iv and started on Coreg po and nitropaste transdermal. He was admitted to Telemetry and Cardiology consulted. In addition, his blood glucose was elevated and a1C was 13.5, so was diagnosed with diabetes mellitus type 2 and put on Insulin. Echo showed EF 35-40%. Stress test was done revealing mild reversible inferoapical defect, however patient opted for medical management instead of cardiac cath. Patient stated he does not want to be on Insulin so was discharged on Metformin. He was subsequently discharged home on Coreg, Lisinopril, Metformin, Aspirin. Total time spent on discharge, 35 mins. Disposition: DISCHARGED TO HOME OR SELFCARE - Discharge Diagnoses (1) Acute systolic (congestive) heart failure Status: Acute (2) Abnormal stress test Status: Acute (3) Diabetes mellitus type 2 in obese Status: Acute (4) Hypertensive urgency Status: Acute (5) Obesity (BMI 30-39.9) Status: Chronic Core Measure Documentation - Palliative Care Palliative Care/ Comfort Measures: Not Applicable - Core Measures Any of the following diagnoses?: heart failure - Heart Failure Discharge Requirements JONO/ARB for LVSD if EF <40%: Yes Beta madeline at discharge: Yes Exam - Physical Exam Narrative exam: Gen appearance: not in acute distress, obese HEENT: Normocephalic, atraumatic Neck : supple, no JVD Lungs: clear to auscultation bilat, no wheezing . Heart : S1 and S2 regular, no murmurs rubs or gallop, Abdomen: soft nontender, nondistended, normal bowel sounds Extremities: no more edema, no clubbing or cyanosis, Neuro :awake alert oriented 3, no focal signs Psych :appropriate mood - Constitutional Vitals: Temp Pulse Resp BP Pulse Ox 98.6 F 94 H 16 122/67 98 10/30/16 14:07 10/30/16 14:07 10/30/16 14:07 10/30/16 14:07 10/30/16 07:30 Plan Diet: low fat, low cholesterol, low salt, diabetic Special Instructions: restrict fluid intake to (1200 mL in 24 hrs) Additional Instructions: 1.Follow-up with primary care physician or [place] medical admission in 1 week. 2.Follow-up with Dr. Steele in one week. 3.No strenous activity until cleared by cardiology. 4.Check fingerstick glucose twice daily,keep log and show to PCP. Follow up with: [facility] [Provider Group] - 7 Days PRIMARY CARE, [Primary Care Provider] - 3-5 Days Prescriptions: amLODIPine [Norvasc] 10 mg PO QDAY #30 tablet Aspirin EC [Aspirin Enteric Coated TAB] 325 mg PO QDAY #30 tablet. Carvedilol [Coreg] 25 mg PO BID #60 tablet Furosemide [Lasix TAB] 40 mg PO QDAY #30 tablet Lisinopril [Zestril TAB] 20 mg PO QDAY #30 tablet metFORMIN [Glucophage] 500 mg PO BID #60 tablet Nitroglycerin [Nitrostat] 0.4 mg SL Q5M PRN #30 tab PRN Reason: Chest Pain
[2016-10-31] MEDS ORDERED: ZESTRIL PO SCH (10:00)
== END 2016-10-30 17:00 | disposition home or self-care (01) | DRG 293 ==
LOC: ED 12:32 → 4A 19:15
PROVIDERS: ADMIT Internal Medicine; ATTEND Internal Medicine
DX: I11.0 Hypertensive heart disease with heart failure (principal); I16.0 Hypertensive urgency; E11.9 Type 2 diabetes mellitus without complications; I50.21 Acute systolic (congestive) heart failure; E66.9 Obesity, unspecified; Z93.0 Tracheostomy status; F17.210 Nicotine dependence, cigarettes, uncomplicated; F10.10 Alcohol abuse, uncomplicated; Z83.3 Family history of diabetes mellitus; Z71.89 Other specified counseling; Z68.38 Body mass index [BMI] 38.0-38.9, adult
CPT/HCPCS: 36415; 71020; 78452; 80048; 80053; 80061; 81001; 82550; 82553; 82962; 83036; 83690; 83880; 84484; 85025; 85610; 85730; 93005; 93010; 93017; 93306; 96374; 96375; A9502; J0360; J1644; J1815; J1940; J2785